=== PATIENT | female | born 1945 | race Hispanic/Latino ===

== ENCOUNTER 2021-02-17 13:49 | Emergency (ER) | payer MEDICARE ==
[~2021-02-17] VITALS: Ht 152.4 cm; Wt 61.4 kg
[2021-02-17] MEDS ORDERED: METFORMIN HCL500 M1 PO (15:31)
[2021-02-17] MEDS ORDERED: FEROSUL325 MG PO (15:31)
[2021-02-17] MEDS ORDERED: NEURONTIN400 MG PO (15:31)
[2021-02-17] MEDS ORDERED: PRAVASTATIN SOD40 MG (15:31)
[2021-02-17] MEDS ORDERED: HYDROCHLOROTHIA25 MG PO (15:31)
[2021-02-17] MEDS ORDERED: PROTONIX20 MG PO (15:31)
[2021-02-17] MEDS ORDERED: BRILINTA90 MG (15:31)
[2021-02-17] MEDS ORDERED: TRAZODONE HCL50 MG PO (15:31)
[2021-02-17] MEDS ORDERED: AMLODIPINE BESY10 MG PO (15:31)
[2021-02-17] MEDS ORDERED: LEVOTHYROXINE88 MCG PO (15:31)
[2021-02-17] MEDS ORDERED: ASPIRIN CHEW81 MG PO (15:31)
[2021-02-17] MEDS ORDERED: CARVEDILOL3.125 MG PO (15:31)
== END 2021-02-17 16:30 | disposition home or self-care (01) ==
LOC: FSED 14:30
DX: M54.6 Pain in thoracic spine (principal); E11.65 Type 2 diabetes mellitus with hyperglycemia; E11.40 Type 2 diabetes mellitus with diabetic neuropathy, unspecified; I10 Essential (primary) hypertension; I25.10 Atherosclerotic heart disease of native coronary artery without angina pectoris; E78.5 Hyperlipidemia, unspecified; K21.9 Gastro-esophageal reflux disease without esophagitis; I25.2 Old myocardial infarction; Z95.5 Presence of coronary angioplasty implant and graft; R94.31 Abnormal electrocardiogram [ECG] [EKG]
CPT/HCPCS: 71046; 80048; 80076; 81003; 82553; 83880; 84484; 85025; 93005; 99283